=== PATIENT | female | born 1960 | race Caucasian/White ===

== ENCOUNTER 2017-10-21 11:34 | Emergency (ER) | payer OTHER ==
[2017-10-21 11:40] VITALS: BMI 33.0
[2017-10-21 11:42] VITALS: BP 112/67; PULSE 72; RESP 17; TEMP 98.1; O2SAT 98
--- NOTE | 2017-10-21 12:46 | ED PDOC ---
Lower Extremity Pain/Injury Time Seen by Provider: 10/21/17 12:14 Chief Complaint (Nursing): Lower Extremity Problem/Injury Chief Complaint (Provider): toe pain History Per: Patient History/Exam Limitations: no limitations Onset/Duration Of Symptoms: Days (x2) Additional Complaint(s): Patient is a 57 y/o female, accompanied by her daughter, who presents to the ED today for evaluation of left great toe pain. Patient's daughter reports that x2 days ago patient hit her toe on the door causing it to bleed. Patient went to [facility] 2 days ago and had x-rays that were read as negative. Patient was instructed to follow up with podiatry and patient states she was instructed to come to this ED for podiatry follow up. Patient has been taking Advil which has provided some pain relief. PMD: Yaakov Pastor Past Medical History Reviewed: Historical Data, Nursing Documentation, Vital Signs Vital Signs: Last Vital Signs Temp 98.1 F 10/21/17 11:41 Pulse 72 10/21/17 11:41 Resp 17 10/21/17 11:41 BP 112/67 10/21/17 11:41 Pulse Ox 98 10/21/17 11:41 - Medical History PMH: Asthma, Diabetes, HTN - Surgical History Surgical History: (x 1) - Family History Family History: States: No Known Family Hx - Living Arrangements Living Arrangements: With Family - Social History Current smoker - smoking cessation education provided: No Ex-Smoker (has not smoked in the last 12 months): No Alcohol: None Drugs: Denies - Home Medications Home Medications: Ambulatory Orders Medication Instructions Recorded Amlodipine/Valsartan [Exforge 1 tab PO DAILY #30 10/22/16 10-160 mg Tablet] Aspirin [Aspirin Chewable] 81 mg PO DAILY #30 10/22/16 Fluticasone/Salmeterol 250/50 1 puff INH RQ12 #1 puff 10/22/16 [Advair Diskus 250/50] Lenalidomide [Revlimid] 15 mg PO DAILY #0 10/22/16 Pregabalin [Lyrica] 75 mg PO DAILY #30 10/22/16 metFORMIN [glucOPHAGE] 1,000 mg PO DAILY #30 tab 10/22/16 Insulin Glargine, Recombina 40 unit SC HS 06/03/17 [Lantus] Sitagliptin Phos/Metformin HCl 1 each PO BID 06/03/17 [Janumet 50-1,000 mg Tablet] Oseltamivir [Tamiflu Cap] 75 mg PO BID #9 cap 06/04/17 Naproxen 375 mg PO BID PRN #20 tablet 10/18/17 - Allergies Allergies/Adverse Reactions: Allergies Allergy/AdvReac Type Severity Reaction Status Date / Time No Known Allergies Allergy Verified 10/21/17 11:57 Review of Systems ROS Statement: Except As Marked, All Systems Reviewed And Found Negative Constitutional: Negative for: Fever Musculoskeletal: Positive for: Foot Pain (left great toenail pain) Physical Exam - Reviewed Nursing Documentation Reviewed: Yes Vital Signs Reviewed: Yes - Physical Exam Appears: Positive for: Well, Non-toxic, No Acute Distress Skin: Positive for: Normal Color. Negative for: Rash Eye Exam: Positive for: Normal appearance Extremity: Positive for: Other (Thickening noted to left great toenail, no acute infection noted, no paronychia is or cellulitis) Neurologic/Psych: Positive for: Alert, Oriented - ECG O2 Sat by Pulse Oximetry: 98 (RA) Pulse Ox Interpretation: Normal Medical Decision Making Medical Decision Making: Time: 12:25 Initial Impression: 57 y/o female patient with left toe pain Initial Plan: --Pain meds declined Dr. Timmons, podiatry resident at bedside. No acute intervention indicated at this time. Patient was instructed to ice and elevate affected area and continue with Advil for pain. Patient was advised to follow-up next week with Dr. Loza in podiatry clinic. Doses as per podiatry is subungual exostosis. Scribe Attestation: Documented by Aravind Ferreira, acting as a scribe for Dilma Orozco PA-C Provider Scribe Attestation: All medical record entries made by the Scribe were at my direction and personally dictated by me. I have reviewed the chart and agree that the record accurately reflects my personal performance of the history, physical exam, medical decision making, and the department course for this patient. I have also personally directed, reviewed, and agree with the discharge instructions and disposition. Disposition - Clinical Impression Clinical Impression: Subungual exostosis - Patient ED Disposition Is Patient to be Admitted: No Counseled Patient/Family Regarding: Diagnosis, Need For Followup - Disposition Referrals: Podiatry Clinic [Outside] Disposition: Routine/Home Disposition Time: 13:26 Condition: STABLE Additional Instructions: Keep affected area elevated and iced. Take [id number] Tylenol and ibuprofen for pain as needed. Call podiatry clinic and arrange for follow-up visit this coming Saturday, October 28, with Dr. Loza. Instructions: Muscle and Bone Pain (DC), Toe Injury Forms: [facility] (Welsh) Print Language: MOLDOVAN
[2017-10-21] MEDS ORDERED: Lidocaine 1% Inj (20ml) IJ STA (12:53)
--- NOTE | 2017-10-21 13:46 | CP.PCM.CON ---
History of Present Illness - History of Present Illness History of Present Illness: Podiatry consult note for Dr. Loza 57 yo patient with type 2 diabetes and hypertension seen in the ED for pain in her left big toe nail. She presents with her daughter who translates for her. She states that she sustained a trauma a few days ago when she bumped her toe into something and since then she has been in pain. She presented to the [facility] ED where x-rays were taken and she was prescribed pain medication and told to report to the [facility] ED. At the initial event she states that there was blood coming from beneath her nail and that ever since the nail has changed to a darker, more yellow, color. She states that there has been no drainage since and no pus has been seen. She rates the pain a 7/10 and states that the pain is worse when there is pressure on the toe and when she wears closed toed shoes. She denies N/V/F/C/SOB/CP and denies any other pedal complaints. PMH: diabetes, hypertension, asthma PSH: All: NKDA SH: non smoker, non drinker, no illicit drug use Past Patient History - Past Medical History & Family History Past Medical History?: Yes - Past Social History Alcohol: None Drugs: Denies - CARDIAC Hx Hypertension: Yes - PULMONARY Hx Asthma: Yes Hx Pneumonia: Yes - NEUROLOGICAL Hx Neurological Disorder: No - HEENT Hx HEENT Problems: No - RENAL Hx Chronic Kidney Disease: No - ENDOCRINE/METABOLIC Hx Diabetes Mellitus Type 2: Yes - HEMATOLOGICAL/ONCOLOGICAL Hx Blood Disorders: No Other/Comment: multiple myeloma. TRANSPLANT BONE MARROW 2 YEARS AGO - INTEGUMENTARY Hx Dermatological Problems: No - MUSCULOSKELETAL/RHEUMATOLOGICAL Hx Falls: No - GASTROINTESTINAL Hx Gastrointestinal Disorders: No - GENITOURINARY/GYNECOLOGICAL Hx Genitourinary Disorders: No - PSYCHIATRIC Hx Psychophysiologic Disorder: No Hx Substance Use: No - SURGICAL HISTORY Hx Surgeries: Yes Other/Comment: bone marrow transplant. lft axillary lymph node removal - ANESTHESIA Hx Anesthesia: Yes Hx Anesthesia Reactions: No Hx Malignant Hyperthermia: No Meds Allergies/Adverse Reactions: Allergies Allergy/AdvReac Type Severity Reaction Status Date / Time No Known Allergies Allergy Verified 10/21/17 11:57 Physical Exam - Constitutional Appears: Well, Non-toxic, No Acute Distress - Head Exam Head Exam: ATRAUMATIC, NORMOCEPHALIC - Eye Exam Eye Exam: EOMI, PERRL - Extremities Exam Additional comments: Vasc: DP and PT palpable 2/4 b/l, cap refill <3 s to all digits, temp gradient warm to cool from proximal to distal, no edema noted Ortho: MMT 5/5 b/l, pain on palpation to the left hallux nail, no pain at the nail borders Neuro: gross and protective sensation intact Derm: mild erythema adjacent to left hallux nail on all sides, evidence of scabbing at the distal nail border; no pus, drainage, open lesions, or clinical signs of infection present to the left hallux nail, no paronychia - Neurological Exam Neurological exam: Alert, Oriented x3 - Psychiatric Exam Psychiatric exam: Normal Affect, Normal Mood Results - Vital Signs Recent Vital Signs: Last Vital Signs Temp 98.1 F 10/21/17 11:41 Pulse 72 10/21/17 11:41 Resp 17 10/21/17 11:41 BP 112/67 10/21/17 11:41 Pulse Ox 98 10/21/17 13:33 Assessment & Plan - Assessment and Plan (Free Text) Assessment: 57 yo seen in ED for painful left hallux secondary to distal phalanx dorsal exostosis and trauma Plan: Pt seen and evaluated Discussed in detail with Dr. Loza X-rays - reviewed reports done at [facility], no fracture noted, dorsal exostosis noted at the distal phalanx Pt instructed to rest and ice left hallux and to continue to wear open shoes Pt educated on cause of pain secondary to trauma and dorsal exostosis Pt will follow up in clinic at [facility] with Dr. Loza to monitor healing progress and continue treatment Pt advised to fill prescription for pain medication if needed Conservative vs surgical treatment discussed with patient Instructed to come to ED if any clinical signs of infection present Dispensed surgical shoe and instructed to wear when ambulating until next visit - Helio Cason PGY1 - Date & Time Date: 10/21/17 Time: 14:06
== END 2017-10-21 13:25 | disposition home or self-care (01) ==
LOC: H.ER 11:34
DX: M25.775 Osteophyte, left foot (principal); C90.00 Multiple myeloma not having achieved remission; E11.9 Type 2 diabetes mellitus without complications; Z79.4 Long term (current) use of insulin